=== PATIENT | female | born 1970 | race Caucasian/White ===

== ENCOUNTER 2020-03-14 12:43 | Outpatient (CLI) | payer BC | END 2020-03-14 12:44 | disposition home or self-care (01) | LOC: COV 12:43 | PROVIDERS: ATTEND Family Medicine | DX: R05 Cough (principal); R53.83 Other fatigue; J02.9 Acute pharyngitis, unspecified; Z20.828 Contact with and (suspected) exposure to other viral communicable diseases ==

== ENCOUNTER 2021-09-05 15:42 | Outpatient (CLI) | payer BC ==
--- NOTE | 2021-09-05 17:29 | XRAY Report ---
PROCEDURE: Shoulder 3 View RT INDICATIONS: RIGHT SHOULDER PAIN TECHNIQUE: 3 views of the shoulder were acquired. COMPARISON: None. FINDINGS: Bones: No fractures or dislocations. There is a 2.2 cm multilobulated mildly sclerotic lesion in th e humeral head without significant lucency. No suspicious periostitis. No suspicious bony lesions. V isualized ribs appear intact. Soft tissues: No suspicious soft tissue calcifications. IMPRESSION: 1. 2.2 cm lobulated sclerotic bone lesion with radiographic appearance suggestive of a benign enchond nika. Reviewed by: Ligia Baires MD on 09/05/2021 5:27 PM PDT Approved by: Ligia Baires MD on 09/05/2021 5:27 PM PDT Station ID: [id number]
== END 2021-09-05 15:43 | disposition home or self-care (01) ==
LOC: DI.N 15:42
PROVIDERS: ATTEND Family Medicine
DX: M89.9 Disorder of bone, unspecified (principal)